=== PATIENT | male | born 1925 | race African-American/Black ===

== ENCOUNTER 2016-10-17 12:48 | Outpatient (CLI) | payer MEDICARE, BC ==
[2016-10-17 15:01] LABS: ALBUMIN 3.5 g/dL (3.4-5.0); BILIRUBIN,TOTAL 0.8 mg/dL (0.2-1.0); CALCIUM, SERUM 8.5 mg/dL (8.5-10.1); CREATININE 2.2 mg/dL (0.6-1.3)
== END 2016-10-17 23:59 | disposition home or self-care (01) ==
LOC: LAB 12:48
PROVIDERS: ATTEND Internal Medicine Interventional Cardiology
DX: I51.7 Cardiomegaly (principal)
CPT/HCPCS: 36415; 71020-TC; 80053-TC; 83880

== ENCOUNTER 2016-10-31 08:56 | Outpatient (CLI) | payer MEDICARE, BC ==
[2016-10-31] MEDS ORDERED: REGADENOSON 0.4 MG/5 ML DISP.SYRIN IVP ONE (10:00)
== END 2016-10-31 23:59 | disposition home or self-care (01) ==
LOC: RAD 08:56
PROVIDERS: ATTEND Internal Medicine Interventional Cardiology
DX: R07.9 Chest pain, unspecified (principal); I25.10 Atherosclerotic heart disease of native coronary artery without angina pectoris; Z95.1 Presence of aortocoronary bypass graft
CPT/HCPCS: 78452; A9502; J2785